=== PATIENT | female | born 1960 | race Caucasian/White ===

== ENCOUNTER 2018-12-19 09:42 | Emergency (ER) | payer SELFPAY ==
[~2018-12-19] VITALS: Ht 152.4 cm; Wt 77.1 kg
[2018-12-19 09:56] VITALS: BP 175/100
[2018-12-19] MEDS ORDERED: KETOROLAC TROMETH 60MG/2ML VIAL IM ONE (13:45)
== END 2018-12-19 16:24 | disposition home or self-care (01) ==
LOC: ER 09:45
DX: S20.222A Contusion of left back wall of thorax, initial encounter (principal); I10 Essential (primary) hypertension; F17.210 Nicotine dependence, cigarettes, uncomplicated; W19.XXXA Unspecified fall, initial encounter; Y93.89 Activity, other specified; Y99.8 Other external cause status; Y92.89 Other specified places as the place of occurrence of the external cause
CPT/HCPCS: 72131; 96372; 99284; J1885